=== PATIENT | female | born 2000 | race Two or more races ===

== ENCOUNTER 2022-05-01 10:13 | Emergency (ER) | payer OTHER ==
[~2022-05-01] VITALS: Ht 162.6 cm; Wt 67.0 kg
[2022-05-01 10:33] VITALS: BP 124/82
[2022-05-01] MEDS ORDERED: ONDANSETRON HCL 4MG/2ML INJ IV STA (10:50)
[2022-05-01] MEDS ORDERED: KETOROLAC 30MG/ML VIAL IV STA (10:50)
[2022-05-01] MEDS ORDERED: SODIUM CHLORIDE 0.9% 1,000 ML IV ONE (11:15)
[2022-05-01 11:24] LABS: BASOPHILS % 0.4 % (0.0-2.0); EOSINOPHILS % 0.6 % (0.0-5.0); HEMATOCRIT. 37.2 % (36.0-48.0); HEMOGLOBIN. 12.5 g/dL (12.0-16.0); LYMPHOCYTES % 12.1 % (20.0-50.0); MEAN CORPUSCULAR HEMOGLOBIN 28.9 pg (28.0-32.0); MEAN CORPUSCULAR VOLUME 86.1 fL (81.0-99.0); MEAN PLATELET VOLUME 10.4 fl (7.4-10.4); MONOCYTES % 4.2 % (2.0-8.0); NEUTROPHILS % 82.7 % (40.0-76.0); PLATELET 221 x1000/uL (130-400); RED BLOOD CELL COUNT 4.32 mill/uL (4.2-5.4); RED CELL DISTRIBUTION WIDTH 13.5 % (11.6-14.6)
[2022-05-01 11:29] LABS: CHLORIDE 106 mEq/L (98-107)
[2022-05-01 12:01] LABS: CLARITY URINE TURBID (CLEAR); COLOR URINE ORANGE (YELLOW); KETONES URINE NEGATIVE (NEGATIVE); LEUKOCYTE ESTERASE URINE 1+ (NEGATIVE); NITRITE URINE NEGATIVE (NEGATIVE); OCCULT BLOOD URINE 3+ (NEGATIVE); PH URINE 5.5 (4.5-8.0); PROTEIN URINE 2+ (NEGATIVE); UROBILINOGEN URINE 0.2 E.U./dL (0.2-1.0)
[2022-05-01] MEDS ORDERED: CEFTRIAXONE 1 G PREMIX 50 ML IV ONE (14:45)
[2022-05-01] MEDS ORDERED: ONDA4TAB50 PO (15:43)
[2022-05-01] MEDS ORDERED: NAPR-681 PO (15:43)
[2022-05-01] MEDS ORDERED: CIPR500T5 PO (15:43)
[2022-05-01] MEDS ORDERED: TAMS-11 PO (15:43)
[2022-05-01] MEDS ORDERED: HYDR-4001 PO (15:43)
== END 2022-05-01 17:15 | disposition home or self-care (01) ==
LOC: ER 10:13
DX: N13.30 Unspecified hydronephrosis (principal); N12 Tubulo-interstitial nephritis, not specified as acute or chronic; N39.0 Urinary tract infection, site not specified
CPT/HCPCS: 36415; 74176; 76770; 80053; 81003; 83690; 85025; 96361; 96365; 96375; 99284; J0696; J1885; J2405; J7030